=== PATIENT | male | born 1985 | race African-American/Black ===

== ENCOUNTER 2019-12-30 19:22 | Emergency (ER) | payer OTHER, SELFPAY ==
[2019-12-30] MEDS ORDERED: FAMOTIDINE 20 MG/2 ML VIAL IV ONE (20:37)
[2019-12-30] MEDS ORDERED: ACETAMINOPHEN 500 MG TAB ONE (20:37)
[2019-12-30] MEDS ORDERED: ONDANSETRON 4 MG/2 ML VIAL ONE (20:37)
[2019-12-30] MEDS ORDERED: NA CHLORIDE 0.9% 2,000 ML ONE (20:38)
--- NOTE | 2019-12-30 21:05 | RAD REPORT ---
EXAM DESCRIPTION: RAD - Chest Single View - 12/30/2019 8:58 pm CLINICAL HISTORY: CODE SEPSIS Chest pain. COMPARISON: No comparisons FINDINGS: Portable technique limits examination quality. Moderate airspace opacity is present in the right upper lobe and right lower lobe most compatible wit h pneumonia. Left lung appears grossly clear. The heart is normal in size. No displaced fractures. IMPRESSION: Multifocal right-sided pneumonia suspected.
[2019-12-30 21:25] LABS: Arterial Blood Carboxyhemoglob 1.4 % (0-1.5); Blood Gas Oxyhemoglobin 85.8 % (94-97); Blood O2 Saturation 87.7 % (92-98.5)
[2019-12-30] MEDS ORDERED: NA CHLORIDE 0.9% 250 ML ONE (21:48)
[2019-12-30] MEDS ORDERED: CEFTRIAXONE/SWI 1gm 1 GM/10 ML SYR ONE (21:48)
[2019-12-30] MEDS ORDERED: AZITHROMYCIN 500 MG INJ IVPB ONE (21:48)
[2019-12-30 22:04] LABS: Absolute Lymphocytes (CBC) 0.7 K/uL (0.7-4.9); Basophils % 0.5 % (0-1.3); Hematocrit 41.7 % (39.6-49.0); Lymphocytes % 14.1 % (15.3-44.8); MPV 9.1 fL (7.6-11.3); RBC Red Blood Cell Count 4.52 M/uL (4.33-5.43)
[2019-12-30 22:23] LABS: ALT/SGPT 19 U/L (12-78); Albumin 2.5 g/dL (3.4-5.0); Alkaline Phosphatase 81 U/L (45-117); BUN Blood Urea Nitrogen 13 mg/dL (7-18); Bicarbonate 23 mmol/L (21-32); Bilirubin Direct 0.1 mg/dL (0-0.2); Bilirubin Total 0.7 mg/dL (0.2-1.0); CKMB Creatine Kinase MB < 1.0 ng/mL (0.3-3.6); Creatine Phosphokinase 410 U/L (39-308); Glucose Level 100 mg/dL (74-106); Lipase 928 U/L (73-393); Protein, Total 6.7 g/dL (6.4-8.2); Sodium Level 137 mmol/L (136-145); Troponin (Emerg Dept Use Only) < 0.02 ng/mL (0.0-0.045)
[2019-12-30 22:24] LABS: AST/SGOT 58 U/L (15-37); Potassium 3.9 mmol/L (3.5-5.1)
[2019-12-30 22:27] LABS: Amylase 286 U/L (25-115)
[2019-12-30 22:31] LABS: Protime INR 1.34
--- NOTE | 2019-12-31 00:23 | EDPHYS ---
Physician Documentation [facility] Name: Derrick Sawyer Age: 34 yrs Sex: Male : 1985 Arrival Date: 12/30/2019 Time: 19:23 Bed 30 Private MD: ED Physician John Hanks HPI: 12/29 19:29 This 34 yrs old Male presents to ER via Unassigned with complaints of Shortness of cp Breath. 19:29 The patient or guardian reports cough, that is intermittent. Onset: The cp symptoms/episode began/occurred last week. Associated signs and symptoms: Pertinent positives: diarrhea, fever, vomiting. Patient reports testing positive for COVID-19 last at [facility]. Historical: - Allergies: 12/30 00:39 Dairy Aid; dm5 - Home Meds: 00:39 Tegretol Oral [Active]; Cymbalta oral [Active]; dm5 - PMHx: 00:39 Asthma; mood disorder; dm5 - Immunization history:: Adult Immunizations up to date. - Social history:: Smoking status: unknown. ROS: 12/29 19:35 Constitutional: Positive for fever, poor PO intake. cp 19:35 Eyes: Negative for injury, pain, redness, and discharge. cp 19:35 ENT: Negative for ear pain, sore throat, difficulty swallowing, difficulty handling cp secretions. 19:35 Neck: Negative for pain with movement, pain at rest, stiffness. 19:35 Cardiovascular: Negative for chest pain, edema. 19:35 Respiratory: Positive for cough, "sounds productive", shortness of breath. 19:35 Abdomen/GI: Positive for nausea, vomiting, and diarrhea, anorexia, Negative for constipation, black/tarry stool, rectal bleeding. 19:35 : Negative for urinary symptoms, testicular pain 19:35 Neuro: Negative for altered mental status, dizziness, headache, weakness. 19:35 All other systems are negative. Exam: 19:40 Constitutional: The patient appears in no acute distress, alert, awake, cp non-diaphoretic, non-toxic, well developed, well nourished, febrile, appears ill 19:40 Head/Face: Normocephalic, atraumatic. cp 19:40 Eyes: Periorbital structures: appear normal, Conjunctiva: normal, no exudate, no injection, Sclera: no appreciated abnormality, Lids and lashes: appear normal, bilaterally. 19:40 ENT: External ear(s): are unremarkable, Nose: is normal, Mouth: is normal, Posterior pharynx: Airway: no evidence of obstruction, patent. 19:40 Neck: ROM/movement: is normal, is supple, no meningismus, no nuchal rigidity. 19:40 Chest/axilla: Inspection: normal, Palpation: is normal, no crepitus, no tenderness. 19:40 Cardiovascular: Rate: tachycardic, Rhythm: regular, Edema: is not appreciated. 19:40 Respiratory: the patient does not display signs of respiratory distress, Respirations: labored breathing, is not present, intercostal retractions, are absent, shallow respirations, that is mild, Breath sounds: decreased breath sounds, that are mild, right side, stridor, is not appreciated, wheezing: is not appreciated, Respiratory rate: 16 19:40 Abdomen/GI: Inspection: abdomen appears normal, Bowel sounds: active, all quadrants, Palpation: abdomen is soft and non-tender, in all quadrants, rebound tenderness, is not appreciated, involuntary guarding, is not appreciated. 19:40 Back: pain, is absent, ROM is normal. 19:40 Skin: no rash present. 19:40 Neuro: Orientation: to person, place \\T\\ time. Mentation: is normal, Motor: moves all fours, strength is normal. 22:10 ECG was reviewed by the Attending Physician. cp Vital Signs: 19:05 BP 119 / 75; Pulse 103; Resp 15; Temp 102; Pulse Ox 93% on R/A; vc 19:26 BP 115 / 75; Pulse 105; Resp 16; Temp 103.1; Pulse Ox 92% on R/A; ss 20:20 Weight 68.04 kg; vc 22:24 BP 118 / 77; Pulse 93; Resp 20; Temp 101.1; Pulse Ox 98% on 4 lpm NC; vc 0710 00:00 BP 120 / 66; Pulse 90; Resp 18; Pulse Ox 98% on 4 lpm NC; vc 02:00 BP 116 / 68; Pulse 91; Resp 20; Pulse Ox 98% on 4 lpm NC; vc 03:00 BP 118 / 64; Pulse 96; Resp 20; Pulse Ox 98% on R/A; vc MDM: 12/29 19:28 Patient medically screened. cp 21:00 Differential diagnosis: bronchitis, flu, pneumonia, respiratory distress, sepsis. 12/30 00:25 Physician consultation: was contacted at 00:15, regarding regarding transfer, to [facility]. cp patient's condition, DR Lopez will accept patient as transfer. 00:30 Data reviewed: vital signs, nurses notes, lab test result(s), EKG, radiologic studies, cp CT scan, plain films, I have discussed the patient's presentation/case with the attending Emergency Department Physician;. 00:30 Antibiotic administration: Rocephin and Zithromax given. Test interpretation: by ED cp physician or midlevel provider: ECG. Response to treatment: the patient's symptoms have markedly improved after treatment. 12/29 19:25 Order name: ABG vc 12/29 20:00 Order name: Amylase, Serum vc 12/29 20:00 Order name: Basic Metabolic Panel vc 12/29 20:00 Order name: Blood Culture Adult (2) vc 12/29 20:00 Order name: CBC with Diff vc 12/29 20:00 Order name: Ckmb vc 12/29 20:00 Order name: CPK vc 12/29 20:00 Order name: Lactate vc 12/29 20:00 Order name: LFT's vc 12/29 20:00 Order name: Lipase vc 12/29 20:00 Order name: Procalcitonin vc 12/29 20:00 Order name: Protime (+inr) vc 12/29 20:00 Order name: Ptt, Activated vc 12/29 20:00 Order name: Troponin (emerg Dept Use Only) vc 12/29 20:00 Order name: Urine Microscopic Only vc 12/29 20:00 Order name: Sed Rate cp 12/29 20:00 Order name: C-Reactive Protein cp 12/29 20:00 Order name: Urine Culture cp 12/29 20:00 Order name: D-Dimer cp 12/29 20:00 Order name: Fibrinogen cp 12/29 20:00 Order name: Basic Metabolic Panel cp 12/29 20:00 Order name: Blood Culture Adult (2) cp 12/29 20:00 Order name: CBC with Diff cp 12/29 20:00 Order name: Lactate cp 12/29 20:00 Order name: LFT's cp 12/29 20:00 Order name: Lipase cp 12/29 20:00 Order name: Procalcitonin cp 12/29 20:00 Order name: Protime (+inr) cp 12/29 20:00 Order name: Ptt, Activated cp 12/29 20:00 Order name: Chest Single View XRAY vc 12/29 20:00 Order name: Troponin (emerg Dept Use Only) cp 12/29 20:00 Order name: Urine Microscopic Only cp 12/29 20:00 Order name: Chest Single View XRAY cp 12/29 21:07 Order name: RAD; Complete Time: 21:33 EDMS 12/29 21:27 Order name: ABG Arterial Blood Gas; Complete Time: 21:33 EDMS 12/29 21:44 Order name: Lactate; Complete Time: 22:33 EDMS 12/29 21:56 Order name: Procalcitonin; Complete Time: 22:33 EDMS 12/29 22:08 Order name: CBC with Automated Diff; Complete Time: 22:33 EDMS 12/29 22:27 Order name: Basic Metabolic Panel; Complete Time: 22:33 EDMS 12/29 22:27 Order name: Liver (Hepatic) Function; Complete Time: 22:33 EDMS 12/29 22:27 Order name: Creatine Phosphokinase; Complete Time: 22:33 EDMS 12/29 22:27 Order name: CKMB Creatine Kinase MB; Complete Time: 22:33 EDMS 12/29 22:27 Order name: Troponin (Emerg Dept Use Only); Complete Time: 22:33 EDMS 12/29 22:27 Order name: C-Reactive Protein; Complete Time: 22:33 EDMS 12/29 22:27 Order name: Amylase; Complete Time: 22:33 EDMS 12/29 22:27 Order name: Lipase; Complete Time: 22:33 EDMS 12/29 22:27 Order name: Sedimentation Rate, Westergren; Complete Time: 22:33 EDMS 12/29 22:34 Order name: Protime (+INR); Complete Time: 23:44 EDMS 12/29 22:34 Order name: PTT, Activated Partial Thromb; Complete Time: 23:44 EDMS 12/29 22:34 Order name: Fibrinogen; Complete Time: 23:44 EDMS 12/29 22:34 Order name: D-Dimer; Complete Time: 23:44 EDMS 12/29 23:44 Interpretation: Abnormal: D-DIMER [id number]. 12/29 22:35 Order name: CT Chest For PE Angio 12/29 22:35 Order name: CT Abd/Pelvis - IV Contrast Only 12/29 22:56 Order name: Blood Culture [facility] 12/29 22:57 Order name: Urine Culture [facility] 12/29 23:03 Order name: Blood Culture [facility] 12/29 23:44 Order name: Blood Culture [facility] 12/29 23:44 Order name: Blood Culture [facility] 12/29 23:44 Order name: Urine Culture [facility] 12/30 00:53 Order name: Urine Dipstick--Ancillary (enter results) [facility] 12/29 20:00 Order name: Accucheck; Complete Time: 00:52 cp 12/29 20:00 Order name: Cardiac monitoring; Complete Time: 21:13 12/29 20:00 Order name: EKG - Nurse/Tech; Complete Time: 21:13 12/29 20:00 Order name: IV Saline Lock - Large Bore; Complete Time: 21:13 12/29 20:00 Order name: Labs collected and sent; Complete Time: 21:13 12/29 20:00 Order name: O2 Per Protocol; Complete Time: 21:13 12/29 20:00 Order name: O2 Sat Monitoring; Complete Time: 21:13 12/29 20:00 Order name: Urine Dipstick-Ancillary (obtain specimen); Complete Time: 00:52 cp EC/09 22:10 Rate is 93 beats/min. Rhythm is regular. IA interval is normal. QRS interval is normal. cp QT interval is normal. T waves are Flattened in lead III. Interpreted by me. Reviewed by me. Administered Medications: 21:12 Drug: Acetaminophen 1000 mg Route: PO; vc 22:00 Follow up: Response: No adverse reaction vc 21:12 Drug: NS 0.9% (30 ml/kg) 30 ml/kg Route: IV; Rate: bolus; Site: left antecubital; vc 21:12 Drug: Zofran (Ondansetron) 4 mg Route: IVP; Site: left antecubital; vc 22:00 Follow up: Response: No adverse reaction vc 21:12 Drug: Pepcid 20 mg Route: IVP; Site: left antecubital; vc 22:00 Follow up: Response: No adverse reaction vc 22:00 Drug: Rocephin - (cefTRIAXone) 1 grams Route: IVPB; Infused Over: 30 mins; Site: left vc antecubital; 22:00 Drug: Zithromax 500 mg Route: IVPB; Infused Over: 1 hrs; Site: left antecubital; vc 22:28 CANCELLED (Duplicate Order): NS 0.9% (30 ml/kg) 30 ml/kg IV at bolus once; Sepsis vc Protocol Disposition: 12/30 06:44 Co-signature as Attending Physician, John Hanks MD. [email or web address] Disposition: 12/31/19 00:22 Transfer ordered to [facility]. Diagnosis are Hypoxemia, Right Upper Lobe Lung Mass, Pneumonia, COVID-19 positive. - Reason for transfer: Higher level of care. - Accepting physician is DR Lopez. - Condition is Fair. - Problem is new. - Symptoms have improved. Signatures: Dispatcher [employer] An Lombardi RN RN dm5 Luisito Echevarria PA PA cp Danika Roman RN RN vc Holmes, Maurice, MD MD 7 Corrections: (The following items were deleted from the chart) 12/29 21:25 19:40 Respiratory: the patient does not display signs of respiratory distress, cp Respirations: labored breathing, is not present, intercostal retractions, are absent, shallow respirations, that is mild, Breath sounds: decreased breath sounds, that are mild, throughout, stridor, is not appreciated, wheezing: is not appreciated, Respiratory rate: 16 cp 21:36 20:00 O2 Sat Monitoring ordered. vc vc 22:28 20:00 NS 0.9% (30 ml/kg) 30 ml/kg IV at bolus once; Sepsis Protocol ordered. vc vc 12/31 99:53 12/29 20:00 Accucheck ordered. vc vc 12/31 99:12/29 20:00 Urine Dipstick-Ancillary ordered. vc vc 12/30 00:53 00:22 12/31/2019 00:22 [facility] Diagnosis is Hypoxemia. Reason cp for transfer: Higher level of care. Accepting physician is DR Lopez. Condition is Fair. Problem is new. Symptoms have improved. cp 03:06 00:53 12/31/2019 00:22 Transfer ordered to [facility]. Diagnosis is Hypoxemia; Right vc Upper Lobe Lung Mass; Pneumonia; COVID-19 positive. Reason for transfer: Higher level of care. Accepting physician is DR Lopez. Condition is Fair. Problem is new. Symptoms have improved. cp
--- NOTE | 2019-12-31 00:23 | ER ---
Nurse's Notes [facility] Name: Derrick Sawyer Age: 34 yrs Sex: Male : 1985 Arrival Date: 12/30/2019 Time: 19:23 Bed 30 Private MD: Diagnosis: Hypoxemia;Right Upper Lobe Lung Mass;Pneumonia;COVID-19 positive Presentation: 12/29 19:05 Initial Sepsis Screen: Does the patient meet any 2 criteria? Temp <36.0*C (96.8*F)) or vc > 38.3*C (100.9*F). HR > 90 bpm. Yes Does the patient have a suspected source of infection? Yes: Productive cough/pneumonia. 19:26 Chief complaint: EMS states: known COVID +, coming in for uncontrolled fever, nausea, ss vomiting, SOB. 94% on room air, tachy in route and given a fluid bolus of 1000ml. Coronavirus screen: Surgical mask placed on patient. Patient moved to private room, placed in contact and droplet isolation with eye protection until further assessment. Patient reports shortness of breath or difficulty breathing. Patient reports a measured and/or subjective temperature greater than 100.4F. Patient reports contact with known and/or suspected case of COVID-19. Ebola Screen: Patient negative for fever greater than or equal to 101.5 degrees Fahrenheit, and additional compatible Ebola Virus Disease symptoms Patient denies exposure to infectious person. Patient denies travel to an Ebola-affected area in the 21 days before illness onset. No symptoms or risks identified at this time. Initial Sepsis Screen: Does the patient meet any 2 criteria? Temp <36.0*C (96.8*F)) or > 38.3*C (100.9*F). HR > 90 bpm. Does the patient have a suspected source of infection? Yes: Other: COVID. Risk Assessment: Do you want to hurt yourself or someone else? Patient reports no desire to harm self or others. Onset of symptoms was December 30, 2019. 19:26 Method Of Arrival: EMS: [facility] 19:26 Acuity: DARLENE 2 ss Triage Assessment: 19:30 General: Appears in no apparent distress. uncomfortable, ill, Behavior is calm, vc cooperative, appropriate for age. Pain: Complains of pain in generalized Pain does not radiate. Pain currently is 7 out of 10 on a pain scale. Quality of pain is described as crampy. Historical: - Allergies: 12/30 00:39 Dairy Aid; dm5 - Home Meds: 00:39 Tegretol Oral [Active]; Cymbalta oral [Active]; dm5 - PMHx: 00:39 Asthma; mood disorder; dm5 - Immunization history:: Adult Immunizations up to date. - Social history:: Smoking status: unknown. Screenin/09 19:30 Abuse screen: Denies threats or abuse. Nutritional screening: No deficits noted. vc Tuberculosis screening: No symptoms or risk factors identified. Fall Risk None identified. Assessment: 19:30 General: Appears in no apparent distress. uncomfortable, ill, Behavior is calm, vc cooperative, appropriate for age. Pain: Pain. Neuro: Level of Consciousness is awake, alert, obeys commands, Oriented to person, place, time, situation, Appropriate for age. Cardiovascular: Capillary refill < 3 seconds Patient's skin is warm and dry. Respiratory: Reports shortness of breath at rest cough that is non-productive, labored breathing pain with cough pain with respiration Airway is patent Respiratory effort is even, labored, Respiratory pattern is symmetrical, tachypnea the patient has moderate shortness of breath. GI: No signs and/or symptoms were reported involving the gastrointestinal system. GI: Reports lower abdominal pain, upper abdominal pain, nausea, vomiting. : No signs and/or symptoms were reported regarding the genitourinary system. EENT: No signs and/or symptoms were reported regarding the EENT system. Derm: Skin is intact, is healthy with good turgor, Skin temperature is hot. 20:30 Reassessment: Patient appears in no apparent distress at this time. Patient and/or vc family updated on plan of care and expected duration. Pain level reassessed. Patient states symptoms have not improved. 21:30 Reassessment: Patient appears in no apparent distress at this time. Patient and/or vc family updated on plan of care and expected duration. Pain level reassessed. Patient states symptoms have improved. 22:30 Reassessment: Patient appears in no apparent distress at this time. Patient and/or vc family updated on plan of care and expected duration. Pain level reassessed. Patient states symptoms have improved. 23:30 Reassessment: Patient appears in no apparent distress at this time. Patient and/or vc family updated on plan of care and expected duration. Pain level reassessed. Patient states symptoms have improved. 12/30 00:30 Reassessment: Patient appears in no apparent distress at this time. Patient and/or vc family updated on plan of care and expected duration. Pain level reassessed. Patient states symptoms have improved. 01:30 Reassessment: Patient appears in no apparent distress at this time. Patient and/or vc family updated on plan of care and expected duration. Pain level reassessed. Patient states symptoms have improved. 02:30 Reassessment: Patient appears in no apparent distress at this time. Patient and/or vc family updated on plan of care and expected duration. Pain level reassessed. Patient states feeling better. Patient states symptoms have improved. Respiratory: Respiratory effort is even, labored, Respiratory pattern is symmetrical. Vital Signs: 12/29 19:05 BP 119 / 75; Pulse 103; Resp 15; Temp 102; Pulse Ox 93% on R/A; vc 19:26 BP 115 / 75; Pulse 105; Resp 16; Temp 103.1; Pulse Ox 92% on R/A; ss 20:20 Weight 68.04 kg; vc 22:24 BP 118 / 77; Pulse 93; Resp 20; Temp 101.1; Pulse Ox 98% on 4 lpm NC; vc 12/30 00:00 BP 120 / 66; Pulse 90; Resp 18; Pulse Ox 98% on 4 lpm NC; vc 02:00 BP 116 / 68; Pulse 91; Resp 20; Pulse Ox 98% on 4 lpm NC; vc 03:00 BP 118 / 64; Pulse 96; Resp 20; Pulse Ox 98% on R/A; vc ED Course: 12/29 19:23 Patient arrived in ED. cf2 19:25 Danika Roman, LYSSA is Primary Nurse. vc 19:26 Luisito Echevarria PA is PHCP. cp 19:26 John Hanks MD is Attending Physician. cp 19:30 Arm band placed on. vc 19:30 Patient has correct armband on for positive identification. Bed in low position. Side vc rails up X2. pulmonologist/intensivist on. Pulse ox on. NIBP on. 19:32 Triage completed. ss 23:59 CT Chest For PE Angio In Process Unspecified. EDMS 12/30 00:01 CT Abd/Pelvis - IV Contrast Only In Process Unspecified. EDMS 03:05 No provider procedures requiring assistance completed. Patient transferred, IV remains vc in place. Administered Medications: 12/29 21:12 Drug: Acetaminophen 1000 mg Route: PO; vc 22:00 Follow up: Response: No adverse reaction vc 21:12 Drug: NS 0.9% (30 ml/kg) 30 ml/kg Route: IV; Rate: bolus; Site: left antecubital; vc 21:12 Drug: Zofran (Ondansetron) 4 mg Route: IVP; Site: left antecubital; vc 22:00 Follow up: Response: No adverse reaction vc 21:12 Drug: Pepcid 20 mg Route: IVP; Site: left antecubital; vc 22:00 Follow up: Response: No adverse reaction vc 22:00 Drug: Rocephin - (cefTRIAXone) 1 grams Route: IVPB; Infused Over: 30 mins; Site: left vc antecubital; 22:00 Drug: Zithromax 500 mg Route: IVPB; Infused Over: 1 hrs; Site: left antecubital; vc 22:28 CANCELLED (Duplicate Order): NS 0.9% (30 ml/kg) 30 ml/kg IV at bolus once; Sepsis vc Protocol Outcome: 12/30 00:22 ER care complete, transfer ordered by . jayy 03:05 Transferred by ground EMS to [facility]. vc 03:05 Condition: good 03:05 Instructed on the need for transfer. 03:06 Patient left the ED. vc Signatures: Dispatcher [employer] EDAn Morse RN RN dm5 Angela Prescott RN RN ss Luisito Echevarria, BERNICE PA Lachelle Barber cf2 Danika Roman RN RN vc
[2019-12-31 01:06] LABS: Urine Blood NEGATIVE (NEG); Urine Glucose NEGATIVE (NEG); Urine Protein 2+ (NEG); Urine Specific Gravity 1.025 (1.005-1.030)
[2019-12-31 01:16] LABS: Urine Bacteria 20-50 /HPF (NONE SEEN); Urine Culture Reflex Order NOT NEEDED; Urine Mucus 1+ /HPF (NONE SEEN); Urine RBC <5 /HPF (NONE SEEN)
[2019-12-31 03:13] VITALS: BP 118/77; TEMP 101.1; O2SAT 98
--- NOTE | 2019-12-31 19:19 | RAD REPORT ---
EXAM DESCRIPTION: CT abdomen and pelvis with IV contrast CLINICAL HISTORY: 34-year-old male with nausea and vomiting, known COVID positive, uncontrolled feve r TECHNIQUE: Axial CT imaging of the abdomen and pelvis was performed following the administration of intravenous contrast only. Sagittal and coronal reconstructed images were then performed. The CT study is performed according to ALARA (as low as reasonably achievable) or ALARA/IMAGE GENTLY, with a utomatic adjustment of mA and/or kV according to patient size. Performed on: 12/30/2019 11:27 PM. COMPARISON: None FINDINGS: Lung bases: There are patchy groundglass opacities and focal areas of consolidation in the visualized lung bases consistent with the patient's reported diagnosis of COVID 19 Liver: The liver is normal in size and configuration. No focal hepatic abnormalities are identified. Liver attenuation is within normal limits. Spleen: The spleen is normal is size, configuration and attenuation. Gallbladder and bile duct: The gallbladder is well distended and unremarkable. There is no biliary ductal dilatation. Pancreas: The pancreas is grossly normal in size and configuration. Adrenal Glands: The adrenal glands are normal in size and configuration. Kidneys: The kidneys are normal in size and configuration. There is no evidence of hydronephrosis. Th ere is no evidence of nephrolithiasis. No definite solid or cystic renal mass lesions are identified. Stomach: The stomach is grossly normal. There is no definite hiatal hernia. Bowel: The bowel gas pattern is non specific and non obstructive. Appendix: The appendix is normal. Free air: There is no evidence of free air. Free fluid: There is no evidence of free fluid. Vasculature: The aorta is normal in caliber and contour. The inferior vena cava is grossly unremarkab le. Lymphadenopathy: No pathologic lymphadenopathy is identified. Bladder: The bladder is well distended and smooth in contour. Reproductive: The prostate gland is grossly within normal limits. Bones: No acute osseous abnormalities are identified. Soft tissues: No focal soft tissue abnormalities are identified. IMPRESSION: 1. No evidence of acute intra-abdominal or intrapelvic pathology. 2. Patchy groundglass opacities and focal areas of consolidation in the visualized lung bases consist ent with the patient's reported diagnosis of COVID 19. Electronically signed by: Doris Schultz DO 12/31/2019 12:14 AM CDT Due to temporary technical issues with the PACS/Fluency reporting system, reports are being signed by the in house radiologist without review as a courtesy to ensure prompt reporting. The interpreting r adiologist is fully responsible for the content of the report.
--- NOTE | 2019-12-31 19:21 | RAD REPORT ---
EXAM DESCRIPTION: ADDENDUM #1 ADDENDUM: THIS REPORT CONTAINS FINDINGS THAT MAY BE CRITICAL TO PATIENT'S CARE: The findings were verbally discussed via telephone conference with Luisito Echevarria NP by Dr. Hui on 12/31/2019 12:12 AM CDT. The results were acknowledged and understood. Electronically signed by: Kit Hui DO 12/31/2019 12:13 AM CDT End of Addendum EXAM DESCRIPTION: CT Angiography Chest With Intravenous Contrast CLINICAL HISTORY: The patient is 34 years old and is Male; SOB TECHNIQUE: Axial computed tomographic angiography images of the chest with intravenous contrast. T his CT exam was performed using one or more of the following dose reduction techniques: automated e xposure control, adjustment of the mA and/or kV according to patient size, and/or use of iterative re construction technique. MIP reconstructed images were created and reviewed. Oblique reformatted images were created and reviewed. DLP: 2030 mGy*cm CONTRAST: 97mL of Isovue-370 was administered intravenously. COMPARISON: Chest radiograph of the same day. FINDINGS: PULMONARY ARTERIES: Unremarkable. No pulmonary embolism. AORTA: No acute findings. No thoracic aortic aneurysm. LUNGS: Large right upper lobe pleural-based mass measuring 5 x 4.9 x 3.4 cm. Scattered ground glass opacities involving predominantly the peripheral and bibasilar lung z ones. PLEURAL SPACE: Right upper lobe pleural thickening. No significant effusion. No pneumothorax. HEART: Unremarkable. No cardiomegaly. No significant pericardial effusion. No evidence of RV dysfunction. THYROID: Thyroid is normal. BONES/JOINTS: Heterogenous erosion/thinning of the posterior aspect of the right fifth rib. No acute fracture. No dislocation. SOFT TISSUES: Unremarkable. LYMPH NODES: Scattered enlarged mediastinal lymph nodes. Prevascular lymph node measuring up to 2. 7 cm. IMPRESSION: 1. No pulmonary aneurysm. 2. Right upper lobe pleural-based mass measuring up to 5 cm with associated pleural thickening and d estructive process of the posterior right fifth rib. Findings concerning for neoplastic process. Soft tissue sampling is recommended. 3. Commonly reported imaging features of COVID-19 pneumonia are present. Other processes such as in fluenza pneumonia and organizing pneumonia, as can be seen with drug toxicity and connective tissue d isease, can cause similar imaging pattern. PneTyp. 4. Reactive mediastinal lymphadenopathy. Electronically signed by: Kit Hui DO 12/31/2019 12:09 AM CDT Due to temporary technical issues with the PACS/Fluency reporting system, reports are being signed by the in house radiologist without review as a courtesy to ensure prompt reporting. The interpreting r adiologist is fully responsible for the content of the report.
== END 2019-12-31 03:06 | disposition short-term general hospital (02) ==
LOC: ER 19:22 → EDBD 19:22 → ER 12-31 03:06
DX: U07.1 COVID-19 (principal); J12.89 Other viral pneumonia; R09.02 Hypoxemia; R91.8 Other nonspecific abnormal finding of lung field; F39 Unspecified mood [affective] disorder; Z91.018 Allergy to other foods
CPT/HCPCS: 93005; 87040 ×2; 87088; 85025; 80048; 36415; 82150; 85384; 82550; 85610; 85379; 80076; 83605; 85730; 85652; 84484; 82553; 83690; 84145; 86140; 71275; 74177; 71045; 82805; 96375; 96374; 99285; Q9967; J2405; 81003; 81015; 87086; J0456; J0696; J7030; J7050